=== PATIENT | male | born 1985 | race Caucasian/White ===

== ENCOUNTER 2017-01-19 04:42 | Emergency (ER) | payer OTHER ==
--- NOTE | 2017-01-19 07:50 | ER Document Report ---
HPI - HPI Patient complains to provider of: hematemesis Pain Level: 4 Context: Patient is a 31-year-old male presents emergency department complaining of hematemesis 2. Patient is postop day 2 from right labial tear repair and ligament extension of the right hip at [facility]. Patient states that he was under general anesthesia and had a catheter. Patient states that he woke up with a sensation of something in the back of his throat and he coughed up some blood clots and then stated he threw up blood and hematochezia 2. Denies any alcohol pain now, nausea, vomiting, diarrhea. Patient does admit to constipation. States his last bowel movement was prior to his procedure he is taking stool softeners as prescribed. Does has history of back problems due to injury sustained on deployment in the [employer] - DERM Skin Color: Normal Past Medical History - Social History Smoking Status: Never Smoker Chew tobacco use (# tins/day): No Frequency of alcohol use: Social Drug Abuse: None Family History: Reviewed & Not Pertinent Patient has suicidal ideation: No Patient has homicidal ideation: No Renal/ Medical History: Denies: Hx Peritoneal Dialysis Past Surgical History: Reports: Hx Orthopedic Surgery - hip Vertical Provider Document - CONSTITUTIONAL Agree With Documented VS: Yes Exam Limitations: No Limitations General Appearance: WD/WN, No Apparent Distress - INFECTION CONTROL TRAVEL OUTSIDE OF THE [place] IN LAST 30 DAYS: No - HEENT HEENT: Atraumatic, Normal ENT Exam, Normocephalic. negative: Pharyngeal Exudate , Pharyngeal Tenderness, Pharyngeal Erythema, Tympanic Membrane Red, Tympanic Membrane Bulging - NECK Neck: Normal Inspection - RESPIRATORY Respiratory: Breath Sounds Normal, No Respiratory Distress, Chest Non-Tender. negative: Rales, Rhonchi, Wheezing O2 Sat by Pulse Oximetry: 96 - CARDIOVASCULAR Cardiovascular: Regular Rate, Regular Rhythm, No Murmur Pulses: Normal: Radial - GI/ABDOMEN Gastrointestinal: Abdomen Soft, Abdomen Non-Tender, No Organomegaly, Normal Bowel Sounds - MUSCULOSKELETAL/EXTREMETIES Musculoskeletal/Extremeties: MAEW, FROM, Non-Tender, No Edema. negative: Eccymosis - NEURO Level of Consciousness: Awake, Alert, Appropriate Motor/Sensory: No Motor Deficit, No Sensory Deficit - DERM Integumentary: Warm, Dry, No Rash Notes: Dressing at the OpSite is clean dry and intact. No evidence of erythema, induration or tenderness superficially. Course - Re-evaluation Re-evalutation: 01/19/17 12:07 Patient is a 31-year-old male presents emergency department with 2 episodes of hematemesis. Patient is hemodynamically stable, no acute distress and afebrile. His presentation is consistent with extubation after surgery. At this time patient is well-appearing and stable for discharge. Discussed signs and symptoms to be aware of to return to the emergency department. - Vital Signs Vital signs: Temp Pulse Resp BP Pulse Ox 98.0 F 86 18 132/78 H 96 01/19/17 05:04 01/19/17 05:04 01/19/17 05:04 01/19/17 05:04 01/19/17 05:04 Discharge - Discharge Clinical Impression: Emesis Condition: Good Disposition: HOME, SELF-CARE Instructions: Vomiting ([facility]) Additional Instructions: Please take your medications as prescribed Please follow up with your surgeon as scheduled
[2017-01-19 08:16] VITALS: BP 137/83
== END 2017-01-19 08:14 | disposition home or self-care (01) ==
LOC: ER 04:42
DX: K92.0 Hematemesis (principal); K92.1 Melena; R04.2 Hemoptysis; K59.00 Constipation, unspecified; Z98.890 Other specified postprocedural states
CPT/HCPCS: 99283

== ENCOUNTER → 2018-04-09 | Outpatient (CLI) | payer OTHER ==
[2018-04-09 11:45] LABS: ABSOLUTE EOSINOPHILS # (AUTO) 0.1 10^3/uL (0.0-0.6); ABSOLUTE MONOCYTES (AUTO) 0.5 10^3/uL (0.1-1.4); ABSOLUTE NEUT (AUTO) 4.2 10^3/uL (1.7-8.2); BASOPHILS % (AUTO) 0.5 % (0-2); EOSINOPHILS % (AUTO) 1.5 % (0-6); HEMATOCRIT 48.8 % (37.9-51.0); HEMOGLOBIN 16.9 g/dL (13.5-17.0); LYMPHOCYTES % (AUTO) 29.3 % (13-45); MEAN CORPUSCULAR HEMOGLOBIN 31.4 pg (27.0-33.4); MEAN CORPUSCULAR HGB CONC 34.7 g/dL (32.0-36.0); MEAN CORPUSCULAR VOLUME 91 fl (80-97); MONOCYTES % (AUTO) 7.2 % (3-13); PLATELET COUNT 226 10^3/uL (150-450); RED BLOOD COUNT 5.38 10^6/uL (4.35-5.55); RED CELL DISTRIBUTION WIDTH 12.7 % (11.5-14.0); SEGMENTED NEUTROPHILS % (AUTO) 61.5 % (42-78); TOTAL CELLS COUNTED % (AUTO) 100 %; WHITE BLOOD COUNT 6.8 10^3/uL (4.0-10.5)
[2018-04-09 12:08] LABS: ANION GAP 17 (5-19); BLOOD UREA NITROGEN 21 mg/dL (7-20); CALCIUM 10.2 mg/dL (8.4-10.2); CARBON DIOXIDE 27 mmol/L (22-30); CHLORIDE 100 mmol/L (98-107); GLUCOSE 86 mg/dL (75-110); POTASSIUM 4.7 mmol/L (3.6-5.0); SODIUM 143.8 mmol/L (137-145)
[2018-04-09 13:14] LABS: APPEARANCE,URINE CLEAR; BILIRUBIN,URINE NEGATIVE (NEGATIVE); COLOR,URINE YELLOW; GLUCOSE, URINE NEGATIVE (NEGATIVE); KETONES,URINE NEGATIVE (NEGATIVE); LEUKOCYTE ESTERASE,URINE NEGATIVE (NEGATIVE); NITRITE,URINE NEGATIVE (NEGATIVE); PROTEIN,URINE NEGATIVE (NEGATIVE); UROBILINOGEN,URINE NEGATIVE mg/dL (<2.0)
--- NOTE | 2018-04-09 15:26 | RADIOLOGY REPORT (SQ) ---
EXAM DESCRIPTION: CHEST PA/LATERAL COMPLETED DATE/TIME: 04/09/2018 3:11 pm REASON FOR STUDY: PRE OP; PRESENCE OF UNSPECIFIED ARTIFICIAL HIP JOINT (Z96.649) COMPARISON: None. EXAM PARAMETERS: NUMBER OF VIEWS: two views TECHNIQUE: Digital Frontal and Lateral radiographic views of the chest acquired. RADIATION DOSE: NA LIMITATIONS: none FINDINGS: LUNGS AND PLEURA: No opacities, masses or pneumothorax. No pleural effusion. MEDIASTINUM AND HILAR STRUCTURES: No masses or contour abnormalities. HEART AND VASCULAR STRUCTURES: Heart normal size. No evidence for failure. BONES: No acute findings. HARDWARE: None in the chest. OTHER: No other significant finding. IMPRESSION: NO SIGNIFICANT RADIOGRAPHIC FINDING IN THE CHEST. TECHNICAL DOCUMENTATION: JOB ID: [id number] [employer]- All Rights Reserved Reading location - IP/workstation name: [email or web address]
--- NOTE | 2018-04-09 18:03 | EKG REPORT ---
SEVERITY:- NORMAL ECG - SINUS RHYTHM : Confirmed by: Otilia Streeter 09-Apr-2018 18:01:55
== END ==
LOC: OD 10:55
PROVIDERS: ATTEND Orthopaedic Surgery
DX: Z01.818 Encounter for other preprocedural examination (principal); Z96.649 Presence of unspecified artificial hip joint
CPT/HCPCS: 36415; 71046; 80048; 81001; 85025; 93005; 93010

== ENCOUNTER 2018-04-20 07:02 | Inpatient (IN) | payer OTHER ==
[~2018-04-20 07:02] MED LIST: ACETAMINOPHEN 1,000 MG/100 ML RTUPB IV ONE; BUPIVACAINE INJ/PF LIPOSOME/PF 266 MG/20 ML SDV ONE; CEFAZOLIN INJ 1 GM VIAL IV PRN; DEXAMETHASONE SOD PHOSPHATE INJ 4 MG/1 ML VIAL ONE; FENTANYL CITRATE INJ/PF 100 MCG/2 ML AMPUL ONE; IBUPROFEN 800 MG in NORMAL SALINE 250 ML IV PRN; LACTATED RINGERS 1000 ML IV PRN; LANSOPRAZOLE 15 MG TAB.RAP.DR PO PRN; LIDOCAINE 0.5% INJ-PF (5 MG/ML) 50 ML SDV SUBCUT PRN; LIDOCAINE 2% INJ-PF (20 MG/ML) 10 ML AMPUL ONE; MIDAZOLAM 2 MG/2 ML INJ ONE; OXYCODONE HCL SR 10 MG TABLET PO PRN; PROPOFOL INJ 200 MG/20 ML VIAL IV ONE; VANCOMYCIN HCL 1,000 MG in DEXTROSE 5%-WATER 250 ML IV PRN
[2018-04-20] MEDS ORDERED: TETRACAINE HCL/PF 20MG/2ML AMPULE (SPINAL) ONE (07:12)
[2018-04-20] MEDS: BUPIVACAINE INJ/PF LIPOSOME/PF 266 MG/20 ML SDV INJ PRN ×2 (07:29→10:30)
[2018-04-20] MEDS: THROMBIN (BOVINE) TOPICAL 20000 UNIT VIAL ONE ×2 (07:31→10:30)
[2018-04-20] MEDS: THROMBIN (BOVINE) 5000 UNIT EPITAXIS KIT ONE ×2 (07:31→10:30)
[2018-04-20] MEDS ORDERED: ONDANSETRON HCL INJ/PF 4 MG/2 ML SDV IV PRN ×2 (10:30→11:23)
[2018-04-20] MEDS ORDERED: MEPERIDINE HCL/PF INJ 25 MG/1 ML DISP.SYRIN IV PRN (10:30)
[2018-04-20] MEDS ORDERED: FENTANYL CITRATE INJ/PF 100 MCG/2 ML AMPUL IV PRN ×3 (10:30)
[2018-04-20] MEDS ORDERED: PROMETHAZINE HCL INJ 25 MG/1 ML VIAL IV PRN ×2 (10:30)
[2018-04-20] MEDS ORDERED: MORPHINE SULFATE 10 MG/ML INJ IV PRN ×3 (10:30→11:23)
[2018-04-20] MEDS ORDERED: DIPHENHYDRAMINE HCL 50 MG/ML VIAL IV PRN ×2 (10:30→11:23)
[2018-04-20] MEDS ORDERED: MAG HYDROX/AL HYDROX/SIMETH SUSP 30 ML UDCUP PO PRN (11:23)
[2018-04-20] MEDS ORDERED: MORPHINE SULFATE 10 MG/ML INJ IM PRN (11:23)
[2018-04-20] MEDS ORDERED: ACETAMINOPHEN 325 MG TABLET PO PRN (11:23)
[2018-04-20] MEDS ORDERED: ZOLPIDEM TARTRATE 5 MG TABLET PO PRN (11:23)
[2018-04-20] MEDS ORDERED: ONDANSETRON 4 MG TAB.RAPDIS PO PRN (11:23)
[2018-04-20] MEDS ORDERED: RINGERS SOLUTION,LACTATED 1,000 ML IV PRN (11:23)
--- NOTE | 2018-04-20 11:36 | Operative Report ---
Operative Report DATE OF SURGERY: 04/20/18 PREOPERATIVE DIAGNOSIS: Right hip arthritis OPERATION: Right resurfacing total hip arthroplasty SURGEON: CLAUDE DASLIVA ANESTHESIA: GA TISSUE REMOVED OR ALTERED: Bone to pathology ESTIMATED BLOOD LOSS: 100 PROCEDURE: Implants used: Femur: Biomet 48 mm BHR femoral head Acetabular shell: 56 mm BHR acetabular cup Liner: None Head: None The patient is placed in a left lateral decubitus position on the operating table. The right lower extremity and hindquarter is prepped and draped in a sterile fashion. A curvilinear incision was made over the greater trochanter a posterior approach the hip was taken. The femoral head is dislocated and retracted anteriorly to expose the underlying acetabulum. Soft tissues cleared off the room and the acetabular using a sharp knife. The anterior capsule section allowing for the translocation of the femoral head anteriorly. The acetabular was then prepared using a series of ketty Subsequently a 56 millimeters Elvi titanium hemispherical shell is impacted into position. The impaction liner was removed after cutting the wires. Attention was next turned to the femur. Access is gained to the through the proximal femur using an alignment guide that is based off the femoral neck. A pin is placed down from the femoral head through the neck and out the lateral cortex of that I can ascertain that in fact the alignment is in valgus as opposed to varus.. The femur is then prepared using a series of reamers until a 48 mm reamer seated at the verge of the femoral neck and head junction. To further reamers were then used to prepare the femoral head both to flatten the top and to make a conical component proximally. A trial reduction was performed and is felt to be adequate. Preoperative leg length was recreated and is excellent anterior posterior stability. A decision was made to proceed with the above construct. The trial femoral component is removed.. The wound is irrigated with pulsed lavage. Polymethyl methacrylate with tobramycin is mixed and used to cement the 48 BHR head onto the femoral neck and head. The hip was reduced. Wound is copiously irrigated with pulsed lavage. Sent closed in layers using interrupted Vicryl followed by ariane. A sterile dressing is applied and the patient's returned to recovery room in satisfactory patient.
[2018-04-20] MEDS ORDERED: FENTANYL CITRATE INJ/PF 100 MCG/2 ML AMPUL ONE (12:04)
[2018-04-20] MEDS ORDERED: PROPOFOL INJ 200 MG/20 ML VIAL IV ONE (12:04)
--- NOTE | 2018-04-20 12:28 | RADIOLOGY REPORT (SQ) ---
EXAM DESCRIPTION: PELVIS AP COMPLETED DATE/TIME: 04/20/2018 12:09 pm REASON FOR STUDY: Post Op Long Cassette in PACU M25.551 PAIN IN RIGHT HIP COMPARISON: None. NUMBER OF VIEWS: AP view of the right hip and bony pelvis TECHNIQUE: Digital radiographic images of the right hip post-procedure. LIMITATIONS: None. FINDINGS: BONES: No worrisome or unexpected findings post-procedure. DEVICE: Right femoral head replacement, acetabular component without anchoring screws SOFT TISSUES: No worrisome findings. Expected postoperative soft tissue changes. Old L5-S1 anterio r fusion. IMPRESSION: SATISFACTORY POSTOPERATIVE RIGHT HIP. TECHNICAL DOCUMENTATION: JOB ID: [id number] [employer]- All Rights Reserved Reading location - IP/workstation name: [email or web address]
[2018-04-20] MEDS ORDERED: TRANEXAMIC ACID INJ/PF 1,000 MG/10 ML SDV IV ONE ×2 (12:29→13:00)
[2018-04-20] MEDS: MORPHINE SULFATE 10 MG/ML INJ IV PRN ×5 (13:37→20:54)
[2018-04-20] MEDS ORDERED: SUCCINYLCHOLINE CHLORIDE INJ 200 MG/10 ML VIAL ONE (15:19)
[2018-04-20] MEDS: OXYCODONE HCL IR 5 MG TABLET PO PRN (16:05)
[2018-04-20] MEDS: SENNOSIDES/DOCUSATE 8.6-50 MG 1 EACH TABLET PO SCH (17:34)
[2018-04-20] MEDS ORDERED: TOPIRAMATE 100 MG TABLET PO SCH (18:00)
[2018-04-20] MEDS: OXYCODONE HCL SR 10 MG TABLET PO SCH (21:44)
[2018-04-20] MEDS: TOPIRAMATE 100 MG TABLET PO SCH (21:46)
[2018-04-20] MEDS ORDERED: VANCOMYCIN HCL 1,000 MG in DEXTROSE 5%-WATER 250 ML IV ONE (23:00)
[2018-04-21] MEDS: MORPHINE SULFATE 10 MG/ML INJ IV PRN ×2 (02:37→05:24)
[2018-04-21] MEDS: LANSOPRAZOLE 30 MG TAB.RAP.DR PO SCH (05:25)
[2018-04-21 05:28] LABS: HEMATOCRIT 38.4 % (37.9-51.0); HEMOGLOBIN 13.4 g/dL (13.5-17.0); MEAN CORPUSCULAR HEMOGLOBIN 31.4 pg (27.0-33.4); MEAN CORPUSCULAR HGB CONC 34.8 g/dL (32.0-36.0); MEAN CORPUSCULAR VOLUME 90 fl (80-97); PLATELET COUNT 163 10^3/uL (150-450); RED BLOOD COUNT 4.26 10^6/uL (4.35-5.55); RED CELL DISTRIBUTION WIDTH 12.6 % (11.5-14.0)
[2018-04-21 05:51] LABS: ANION GAP 10 (5-19); BLOOD UREA NITROGEN 14 mg/dL (7-20); CALCIUM 8.6 mg/dL (8.4-10.2); CARBON DIOXIDE 26 mmol/L (22-30); CHLORIDE 105 mmol/L (98-107); GLUCOSE 142 mg/dL (75-110); POTASSIUM 3.9 mmol/L (3.6-5.0); SODIUM 140.7 mmol/L (137-145)
--- NOTE | 2018-04-21 06:42 | PDOC PROGRESS REPORT ---
Subjective Progress Note for:: 04/21/18 Reason For Visit: R HIP OA 32-year-old white male postop day 1 right hip arthroplasty. Patient complaining of some discomfort and stiffness last night. Physical Exam Vital Signs: Temp Pulse Resp BP Pulse Ox 36.8 C 74 16 128/73 H 100 04/20/18 23:17 04/20/18 23:17 04/20/18 23:17 04/20/18 23:17 04/20/18 23:17 Intake & Output 04/19/18 04/20/18 04/21/18 06:59 06:59 06:59 Intake Total 5174 Output Total 4450 Balance 724 Weight 94.3 kg General appearance: PRESENT: mild distress Head exam: PRESENT: normocephalic Respiratory exam: PRESENT: unlabored Cardiovascular exam: PRESENT: RRR Pulses: PRESENT: +1 pedal pulses bilateral Vascular exam: PRESENT: normal capillary refill GI/Abdominal exam: PRESENT: soft Rectal exam: PRESENT: deferred Extremities exam: PRESENT: other - Right hip dressing saturated. Is changed with a fresh OpSite. Leg lengths are equal. Distal neurovascular examination is intact. Neurological exam: PRESENT: alert, awake, oriented to person, oriented to place , oriented to time, oriented to situation. ABSENT: motor sensory deficit Psychiatric exam: PRESENT: appropriate affect, normal mood. ABSENT: homicidal ideation, suicidal ideation Skin exam: PRESENT: dry, intact, warm. ABSENT: cyanosis, rash Results Laboratory Results: 04/21/18 04:29 04/21/18 04:29 04/20/18 04/21/18 04/21/18 08:04 04:29 04:29 WBC 12.0 H RBC 4.26 L Hgb 13.4 L Hct 38.4 MCV 90 MCH 31.4 MCHC 34.8 RDW 12.6 Plt Count 163 Sodium 140.7 Potassium 3.9 Chloride 105 Carbon Dioxide 26 Anion Gap 10 BUN 14 Creatinine 0.89 Est GFR ( Amer) > 60 Est GFR (Non-Af Amer) > 60 Glucose 142 H Calcium 8.6 Blood Type O POSITIVE Antibody Screen NEGATIVE Impressions: Pelvis X-Ray 04/20/18 11:24 IMPRESSION: SATISFACTORY POSTOPERATIVE RIGHT HIP. Status: Imported from PACS Assessment & Plan - Diagnosis (1) Arthritis of right hip Is this a current diagnosis for this admission?: Yes Plan: Patient received no physical therapy yesterday because of prolonged spinal. Will be seen by physical therapy today and will be mobilized on a weightbearing as tolerated basis. Anticipate discharge home tomorrow with home health services. - Time Time Spent with patient: 15-24 minutes Anticipated discharge: Home with Homehealth Within: within 24 hours
[2018-04-21] MEDS: PRENATAL VITAMIN W DHA CAPSULE PO SCH (10:01)
[2018-04-21] MEDS: TOPIRAMATE 100 MG TABLET PO SCH ×2 (10:02→21:48)
[2018-04-21] MEDS: SENNOSIDES/DOCUSATE 8.6-50 MG 1 EACH TABLET PO SCH ×2 (10:02→18:23)
[2018-04-21] MEDS: ASPIRIN 81 MG TABLET, ENT COATED PO SCH (10:02)
[2018-04-21] MEDS: OXYCODONE HCL SR 10 MG TABLET PO SCH ×2 (10:02→21:47)
[2018-04-21] MEDS: OXYCODONE HCL IR 5 MG TABLET PO PRN ×2 (11:36→20:14)
[2018-04-21] MEDS ORDERED: FENTANYL CITRATE INJ/PF 100 MCG/2 ML AMPUL IV PRN (20:24)
[2018-04-21] MEDS ORDERED: KETOROLAC TROMETHAMINE INJ/PF 30 MG/1 ML SDV IV PRN (23:51)
[2018-04-22] MEDS: LANSOPRAZOLE 30 MG TAB.RAP.DR PO SCH (06:06)
[2018-04-22 06:25] LABS: HEMATOCRIT 39.8 % (37.9-51.0); HEMOGLOBIN 13.6 g/dL (13.5-17.0); MEAN CORPUSCULAR HEMOGLOBIN 31.3 pg (27.0-33.4); MEAN CORPUSCULAR HGB CONC 34.2 g/dL (32.0-36.0); MEAN CORPUSCULAR VOLUME 92 fl (80-97); PLATELET COUNT 162 10^3/uL (150-450); RED BLOOD COUNT 4.33 10^6/uL (4.35-5.55); RED CELL DISTRIBUTION WIDTH 12.8 % (11.5-14.0); WHITE BLOOD COUNT 11.1 10^3/uL (4.0-10.5)
--- NOTE | 2018-04-22 07:02 | PDOC DISCHARGE SUMMARY ---
General - Admit/Disc Date/PCP Admission Date/Primary Care Provider: 04/20/18 07:02 NAVID HUSSEIN MD Discharge Date: 04/22/18 - Discharge Diagnosis (1) Arthritis of right hip Is this a current diagnosis for this admission?: Yes - Additional Information Resuscitation Status: Full Code Discharge Diet: As Tolerated, Regular Discharge Activity: Balance Activity w/Rest, No Driving, No tub bath Home Medications: Sumatriptan Succinate [Imitrex 100 mg Tablet] 100 mg PO ASDIR PRN 04/20/18 Topiramate [Topamax 100 mg Tablet] 100 mg PO BID 04/20/18 Zolpidem Tartrate [Ambien Cr] 12.5 mg PO QHS 04/20/18 Aspirin [Ecotrin 81 mg EC Tablet] 81 mg PO DAILY tabec 04/22/18 Oxycodone HCl [Oxy-Ir 5 mg Tablet] 5 mg PO Q6HP PRN tablet 04/22/18 History of Present Illness History of Present Illness: MERNO LEAL JR is a 32 year old male Patient is a 32-year-old white male with progressive right hip pain and functional disability secondary osteoarthritis. Patient is admitted for elective right hip arthroplasty. Hospital Course Hospital Course: Patient is admitted through the operating where he undergoes unconjugated right hip arthroplasty using Quiroz and nephew resurfacing implants. He tolerates the procedure without complication. Is returned to floor in satisfactory condition. He makes excellent progress with physical therapy. He is ready for discharge home with home health services. Physical Exam Vital Signs: Temp Pulse Resp BP Pulse Ox 37.6 C 90 18 107/56 L 97 04/21/18 22:53 04/21/18 22:53 04/21/18 22:53 04/21/18 22:53 04/21/18 22:53 Intake & Output 04/21/18 04/22/18 04/23/18 06:59 06:59 06:59 Intake Total 5174 2478 Output Total 4450 1800 Balance 724 678 Weight 94.3 kg 94.3 kg General appearance: PRESENT: no acute distress Head exam: PRESENT: normocephalic Respiratory exam: PRESENT: unlabored Cardiovascular exam: PRESENT: RRR Pulses: PRESENT: normal dorsalis pedis pul Vascular exam: PRESENT: normal capillary refill GI/Abdominal exam: PRESENT: soft Rectal exam: PRESENT: deferred Extremities exam: PRESENT: other - Right hip dressing clean dry and intact. Leg lengths are equal. Distal neurovascular examination is intact. Neurological exam: PRESENT: alert, awake, oriented to person, oriented to place , oriented to time, oriented to situation. ABSENT: motor sensory deficit Psychiatric exam: PRESENT: appropriate affect, normal mood. ABSENT: homicidal ideation, suicidal ideation Skin exam: PRESENT: dry, intact, warm. ABSENT: cyanosis, rash Results Laboratory Results: 04/22/18 05:11 04/21/18 04:29 04/22/18 05:11 WBC 11.1 H RBC 4.33 L Hgb 13.6 Hct 39.8 MCV 92 MCH 31.3 MCHC 34.2 RDW 12.8 Plt Count 162 Impressions: Pelvis X-Ray 04/20/18 11:24 IMPRESSION: SATISFACTORY POSTOPERATIVE RIGHT HIP. Status: Imported from PACS Qualifiers - * PATIENT BEING DISCHARGED WITH ANY OF THE FOLLOWING DIAGNOSIS: No VTE patient discharged on overlapping Therapy?: Yes Plan Discharge Plan: Patient to be discharged home with home health services and DME. Follow-up with Dr. Chris and [facility] for surgery in 2 weeks for staple removal.
[2018-04-22] MEDS: ASPIRIN 81 MG TABLET, ENT COATED PO SCH (09:04)
[2018-04-22] MEDS: PRENATAL VITAMIN W DHA CAPSULE PO SCH (09:04)
[2018-04-22] MEDS: SENNOSIDES/DOCUSATE 8.6-50 MG 1 EACH TABLET PO SCH (09:04)
[2018-04-22] MEDS: TOPIRAMATE 100 MG TABLET PO SCH (09:04)
[2018-04-22] MEDS: OXYCODONE HCL SR 10 MG TABLET PO SCH (09:04)
[2018-04-22 14:22] VITALS: BP 107/68
== END 2018-04-22 18:09 | disposition home health service (06) | DRG 470 ==
LOC: INOR 07:02 → 4N 13:16
PROVIDERS: ADMIT Orthopaedic Surgery; ATTEND Orthopaedic Surgery
PROC: 0SR9029 Replacement of Right Hip Joint with Metal on Polyethylene Synthetic Substitute, Cemented, Open Approach (ICD-10-PCS; principal; 2018-04-20 09:15)
DX: M16.11 Unilateral primary osteoarthritis, right hip (principal); Z79.899 Other long term (current) drug therapy
CPT/HCPCS: 01214; 36415; 72170; 80048; 85027; 86850; 86900; 86901; 88304; 88311; 94799; C9290; J0131; J0330; J0690; J1100; J1741; J1885; J2250; J2270; J2704; J3010; J3370; J3490; J7050; J7060